=== PATIENT | female | born 1985 | race Two or more races ===

== ENCOUNTER 2019-02-10 12:55 | Outpatient (CLI) | payer OTHER | END 2019-02-10 13:05 | disposition home or self-care (01) | LOC: LAB 12:55 | DX: J11.1 Influenza due to unidentified influenza virus with other respiratory manifestations (principal); J11.89 Influenza due to unidentified influenza virus with other manifestations ==

== ENCOUNTER 2019-03-09 17:34 | Emergency (ER) | payer OTHER ==
[~2019-03-09] VITALS: Ht 170.2 cm; Wt 97.1 kg
[2019-03-09] MEDS ORDERED: DOXYCYCLINE HY100 M2 PO (18:23)
[2019-03-09] MEDS ORDERED: INTESTINEX680 M1 PO (18:23)
== END 2019-03-09 18:58 | disposition home or self-care (01) ==
LOC: ER 17:34
DX: L03.114 Cellulitis of left upper limb (principal)

== ENCOUNTER 2022-08-13 09:43 | Emergency (ER) | payer OTHER ==
[~2022-08-13] VITALS: Ht 170.2 cm; Wt 97.5 kg
[~2022-08-13 09:43] MED LIST: DOXYCYCLINE HY100 M2 PO; INTESTINEX680 M1 PO
== END 2022-08-13 14:50 | disposition home or self-care (01) ==
LOC: ER 09:43
DX: B34.9 Viral infection, unspecified (principal); Z20.822 Contact with and (suspected) exposure to COVID-19